=== PATIENT | male | born 1955 | race Caucasian/White ===

== ENCOUNTER 2022-04-09 07:43 | Day surgery (SDC) | payer BC, OTHER ==
[~2022-04-09 07:43] MED LIST: Lactated Ringers 1,000 ML IV SCH; Lidocaine 1% 4 ML ONE; Lidocaine 1%/Sod Bicarbonate in NS 8.4% 1 ML Syringe IDERM PRN; Midazolam 1 MG/ML 2 ML SDV ONE; Propofol 200 MG/20 ML SDV ONE; Sodium Chloride 0.9% 10 ML Syringe FLUSH PRN; Sodium Chloride 0.9% 10 ML Syringe FLUSH SCH; fentaNYL 100 MCG/2 ML SDV ONE
[2022-04-09] MEDS ORDERED: Ondansetron 4 MG/2 ML SDV IVPUSH PRN (08:28)
[2022-04-09 10:22] VITALS: BP 120/87; PULSE 60
== END 2022-04-09 10:15 | disposition home or self-care (01) ==
LOC: JD.SDS 07:43
PROVIDERS: ATTEND Surgery
DX: Z12.11 Encounter for screening for malignant neoplasm of colon (principal); D12.0 Benign neoplasm of cecum; K29.50 Unspecified chronic gastritis without bleeding; K31.89 Other diseases of stomach and duodenum; K31.A0 Gastric intestinal metaplasia, unspecified; K21.00 Gastro-esophageal reflux disease with esophagitis, without bleeding; K44.9 Diaphragmatic hernia without obstruction or gangrene; K22.70 Barrett's esophagus without dysplasia; K57.30 Diverticulosis of large intestine without perforation or abscess without bleeding; M10.9 Gout, unspecified; H54.7 Unspecified visual loss; Z88.6 Allergy status to analgesic agent; Z88.8 Allergy status to other drugs, medicaments and biological substances; Z79.899 Other long term (current) drug therapy; Z87.891 Personal history of nicotine dependence; Z79.51 Long term (current) use of inhaled steroids
CPT/HCPCS: 43239; 45380; J2250; J2704; J3010; J7120

== ENCOUNTER 2024-04-17 08:00 | Day surgery (SDC) | payer MEDICARE ==
[~2024-04-17 08:00] MED LIST changes: -Lidocaine 1% 4 ML ONE; -Lidocaine 1%/Sod Bicarbonate in NS 8.4% 1 ML Syringe IDERM PRN; -Midazolam 1 MG/ML 2 ML SDV ONE; -Propofol 200 MG/20 ML SDV ONE; -fentaNYL 100 MCG/2 ML SDV ONE
[2024-04-17] MEDS ORDERED: Ondansetron 4 MG/2 ML SDV IVPUSH PRN (08:25)
[2024-04-17] MEDS ORDERED: HYDROmorphone 0.5 MG/0.5 ML Syringe IVPUSH PRN (08:25)
[2024-04-17] MEDS ORDERED: fentaNYL 100 MCG/2 ML SDV IVPUSH PRN (08:25)
[2024-04-17] MEDS: Acetaminophen 325 MG Tab PO SCH (08:30)
[2024-04-17] MEDS ORDERED: Bupivacaine 0.5% 30 ML SDV ONE (08:30)
[2024-04-17] MEDS: Pregabalin 25 MG Cap PO SCH (08:30)
[2024-04-17] MEDS ORDERED: Midazolam 1 MG/ML 2 ML SDV ONE ×2 (08:31→09:24)
[2024-04-17] MEDS: oxyCODONE ER 10 MG TAB.ER PO SCH (08:31)
[2024-04-17] MEDS ORDERED: Propofol 200 MG/20 ML SDV ONE (08:31)
[2024-04-17] MEDS ORDERED: Ondansetron 4 MG/2 ML SDV ONE (08:31)
[2024-04-17] MEDS ORDERED: ceFAZolin 2 GM Vial ONE (08:32)
[2024-04-17] MEDS ORDERED: Ketamine 200 MG/20 ML MDV ONE (09:15)
[2024-04-17] MEDS ORDERED: Rocuronium 50 MG/5 ML Vial ONE (09:43)
[2024-04-17] MEDS ORDERED: HYDROmorphone 0.5 MG/0.5 ML Syringe ONE ×3 (09:55→10:41)
[2024-04-17] MEDS ORDERED: Sugammadex Sodium 200 MG/2 ML VIAL IV ONE (10:10)
[2024-04-17] MEDS ORDERED: Lactated Ringers 1,000 ML IV ONE (10:30)
[2024-04-17] MEDS: Tranexamic Acid 1,000 MG/10 ML Vial ONE (10:36)
[2024-04-17] MEDS: Morphine 8 MG, EPINEPHrine 0.3 MG, Cefuroxime 750 MG, Ketorolac 30 MG, Sodium Chloride ... PRN (10:37)
[2024-04-17] MEDS: Vancomycin 1 GM SDV ONE (10:37)
[2024-04-17] MEDS: oxyCODONE 5 MG Tab PO PRN (14:16)
[2024-04-17 14:37] VITALS: BP 125/71; PULSE 57
== END 2024-04-17 15:08 | disposition home or self-care (01) ==
LOC: JD.SDS 08:00
PROVIDERS: ATTEND Orthopaedic Surgery
DX: M16.12 Unilateral primary osteoarthritis, left hip (principal); K21.9 Gastro-esophageal reflux disease without esophagitis; I10 Essential (primary) hypertension; E78.5 Hyperlipidemia, unspecified; M10.9 Gout, unspecified; E66.9 Obesity, unspecified; R73.01 Impaired fasting glucose; Z88.8 Allergy status to other drugs, medicaments and biological substances; Z91.09 Other allergy status, other than to drugs and biological substances; Z79.899 Other long term (current) drug therapy; Z87.891 Personal history of nicotine dependence; Z68.41 Body mass index [BMI] 40.0-44.9, adult; Z79.82 Long term (current) use of aspirin
CPT/HCPCS: 0055T; 27130; 36415; 73501; 86850; 86900; 86901; 97110; 97161; A9270; C1713; C1776; J0171; J0665; J0690; J0697; J1170; J1596; J1885; J2250; J2270; J2405; J2704; J3370; J3490; J7120; 01214